=== PATIENT | male | born 1980 | race Caucasian/White ===

== ENCOUNTER → 2023-10-31 13:18 | Outpatient (BNVA) | payer OTHER, SELFPAY | PROVIDERS: Visit Provider Physician Assistant ==

== ENCOUNTER 2023-12-05 14:57 | Outpatient (AMB) | payer OTHER, SELFPAY ==
--- NOTE | 2023-12-05 14:59 | A.OFFVIS_ITS ---
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 He heard about our program from a co-worker. His goal is to lose weight and achieve a healthy lifestyle. He reports first being concerned about his weight since childhood, highest weight to date was 370. Current weight is 282.8 pounds with a BMI of 39.4. He has tried multiple methods of weight loss including fad diets without permanent results. He lives with his and dogs. 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 He wakes at:?630 am, and goes to bed at?10 pm. Dinner is at 630 pm. Breakfast: skip or 2 eggs w bagel w cream cheese or butter alternative, or polish yogurt AM snack: skip Lunch: salad, deli meat, low fat low carb wrap PM snack: pretzels Dinner: prepared meals shipped to home. chicken, salad, restaurant food After dinner: banana or ice cream Other snacks: ice cream Liquids: 64 oz water, no soda no juice, 2-3 c coffee w cream (last cup by noon) Alcohol/marijuana/tobacco intake: 1-2 beers per week, no cannabis, no tobacco Exercise: none, has gym membership, PF or performance gym. GERD score: 0 TEJA score: 3 ESS score: 3 QOL score: 58 [facility] Surgical History Hx of oral surgery Hx of foot surgery Hx of eye surgery Family History Mother No problems noted. Father Diabetes Heart problem Sister No problems noted. Social History Alcohol intake: current Alcohol intake frequency: a few times a week Patient Tobacco Use Status: Never used Tobacco Review of Systems Const All systems reviewed & are unremarkable except as noted in HPI and below Physical Exam Vital Signs: Last Vital Signs Temp 97.8 F 12/05/23 15:09 Pulse 92 12/05/23 15:09 BP 139/74 12/05/23 15:09 Pulse Ox 99 12/05/23 15:09 Oxygen Delivery Method Room Air 12/05/23 15:09 BMI result Body Mass Index 39.4 Const General: cooperative, healthy appearing and no acute distress Orientation/consciousness: patient oriented x3 HEENT Head: Yes normal to inspection Ears: hearing grossly normal bilaterally General nose exam: Normal external nose present Face and sinus: Yes normal facial exam Eyes General: appearance normal, both eyes and all related structures Resp Effort & Inspection: normal respiratory effort Auscultation: clear to auscultation bilaterally Cardio Rate: regular rate Rhythm: regular rhythm Heart sounds: S1 normal heart sound present and S2 normal heart sound present GI Inspection: Yes normal to inspection, No distended and Yes obesity Palpation (GI): Soft to palpation, nontender and no guarding Auscultation: normal bowel sounds Skin General skin exam: no rashes or lesions noted Neuro General: patient oriented x3 Extrem General: No edema Psych Appearance: grossly normal Mental Status: mental status grossly normal Speech and movement: Normal speech and movement present Affect: normal affect Attitude: cooperative Assessment & Plan Assessment & Plan (1) Obesity (BMI 30-39.9): Code(s): E66.9 - Obesity, unspecified Plan: This is a?43 yo male who will start our MWL program.? ? Adequate sleep of 7-8 hours per night discussed, awakening at 06:30 and going to bed at 10 pm ? Purchase body composition analyzer scale (Renpho recommended) and check weight weekly. The best time to do this is first thing in the morning after going to the bathroom. 1. Nutritional counseling: Be sure to careful read the number of scoops per shake Start with 2 Orgain Protein shakes (TabTale, MicroEnsure), (2 scoops in 12 oz unsweetened almond milk) First shake at 730am-930am Second shake at 1130am-130pm 2 protein bars (Zone perfect, fulfil or aloha) First bar at 330pm-530pm. Dinner at 630 pm (9 forks of protein and 9 forks of salad/vegetables). Meal to include lean meat (beef, fish, pork, turkey, chicken), cooked vegetables or a salad with olive oil and/or fruits (berries, pears, apples, kiwi). Avoid salt, breads, potatoes, rice, pasta, desserts. Second bar at 8pm-10pm. Try to drink 64 oz of water daily and avoid soda and juices. ?2. Each shake would be drunk slowly, like coffee in a period of 2 hours. ?3. Cut each bar in 4 pieces and eat each piece in 30 min ?to make each bar last 2 hours. ?4. I emphasized the importance of measuring accurately the food portion and measure it carefully when serving the food on the plate ?5. The meal portions include 9 full-size forks of meat and 9 full-size forks of salad. You always eat the meat portion but you can replace up to half of the forks of salad/vegetables with rice, potatoes or pasta, or a fruit ?if you like. The less you do it the better weight loss will be. ?6. One full-size fork is what can be scooped on the fork without falling aside and not what can be bit with the fork. Use regular forks like those you find in a typical restaurant. ?7.? Please send me weight measurements as soon as possible and then once a week. Always include your diet and exercise plan. Alternatively come weekly at the office for weight checks and send me the measurements. ?8. Exercise counseling: Begin by watching a stretching for beginners video. Start slowly and begin to stretch your muscles. You should do this before and after each exercise session to prevent injury. Please return to [facility] gym or performance gym near your home. Ask the web development manager or one of the trainers how to use the machines if you are unfamiliar with them. Start elliptical with a resistance of 2. Increase resistance by 1 every 3 min to your most comfortable resistance with a max resistance of 8. Reduce the resistance by 1 every 3 minutes back down to 2 and repeat cycles for 300 calories. Alternatively, start treadmill with a speed of 3.0 and incline of 0, increasing incline by 1 every 3 minutes to the highest comfortable level (max 6 for now) then decrease in the same fashion. Repeat process to a goal of 300 calories. Goal of 2000 calories burned or more weekly. You may also consider use of the stationary bike. The easiest would be to chose the fat-burn or interval training program on the machine and do this until you reach the 300 calorie goal. Alternatively, you can manually adjust the resistance in a similar fashion as mentioned above, (resistance of 2-8 with a goal speed of 12 mph). Tracking calories is essential. 9. Alternatively start walking outside daily, tracking calories with a goal of 300 calories per day, daily. You can download the devyn Twoodo which can track your time, distance and calories while walking outside. You press start in the devyn when you start and then stop when you are finished. 10.? It is important to communicate by text weekly 11. Discussed and answered all questions regarding?obtained consent to participate in the [place] [facility]?Registry. 12. Please follow the diet plan exactly, without any change. If you do not like something about the plan or you feel hungry, you need to communicate with me so I can help you revise the plan. You should not change the plan yourself. Text me at [phone] 13. Goal is to lose at least 12 pounds in the first month Patient is morbidly obese and is not considered stable at this time.?I spent a total of 70 minutes reviewing/updating records, examining the patient and counseling the patient on weight management as detailed above. Coding Level of Care Code New Pt Level 5 (97059) Diagnoses Obesity (BMI 30-39.9) E66.9 Time Spent (min) 70
[2023-12-05 15:09] VITALS: BP 139/74; PULSE 92; TEMP 36.6; O2SAT 99; BMI 39.4
== END 2023-12-05 16:22 | disposition home or self-care (01) ==
PROVIDERS: Visit Provider Physician Assistant Surgical
DX: E66.9 Obesity, unspecified (principal); Z68.39 Body mass index [BMI] 39.0-39.9, adult
CPT/HCPCS: 99205

== ENCOUNTER → 2023-12-05 14:57 | Outpatient (BNVA) | payer OTHER, SELFPAY | PROVIDERS: Visit Provider Physician Assistant Surgical ==

== ENCOUNTER 2024-01-15 08:32 | Outpatient (AMB) | payer OTHER, SELFPAY ==
[2024-01-15 08:16] VITALS: BMI 38.0
--- NOTE | 2024-01-15 08:16 | A.OFFVIS_ITS ---
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 He is being seen in the metabolic weight loss program. Was initially seen on 12/05/2023. Weight at that time was 282.8 lb with a BMI of 39.4. Weight today is 272.5 lb with a BMI of 38. Overall weight loss is 10.3 lb or 3.6% total body weight loss. He recently returned from a vacation [place] [place] [facility]. Aside form the vacation, he is doing well. He is following the meal plan except having more forks of veggies. Sometimes not having the second bar. Meal plan: 2 Orgain Protein shakes (WeSpeke, TruLeaf), (2 scoops in 12 oz unsweetened almond milk) First shake at 730am-930am Second shake at 1130am-130pm 2 protein bars (Zone perfect, fulfil or aloha) First bar at 330pm-530pm. Dinner at 630 pm (9 forks of protein and 9 forks of salad/vegetables). Second bar at 8pm-10pm. Drinking 90-120 oz water Exercise plan: gym, elliptical, 2-3 x per week, 500-600 walking outside 2 mi daily 20-30 min on pelaton bike, 2-3 x per week PFSH Surgical History Hx of oral surgery Hx of foot surgery Hx of eye surgery Family History Mother No problems noted. Father Diabetes Heart problem Sister No problems noted. Social History Alcohol intake: current Alcohol intake frequency: a few times a week Patient Tobacco Use Status: Never used Tobacco Telehealth Telehealth Telehealth Platform: Telephone Location of provider rendering services: practice address Location of patient: address on file Patient Identification confirmed using: Name, : Yes Telehealth method: voice only Patient verbally consented to treatment: Yes Patient verbally consented to billing insurance company: Yes Patient informed of any privacy concerns related to visit: Yes Minutes spent on Phone/Video with Pt.: 15 Assessment & Plan Assessment & Plan (1) Obesity (BMI 30-39.9): Code(s): E66.9 - Obesity, unspecified Category: Medical Plan: Overall making good progress. Now that he is returned from his vacation in [place] [place], he will continue to exercise more regularly. Discussed using Peloton bike after the walk with the dog. Additionally, we will make some adjustments to his meal plan: 2 Orgain Protein shakes (WeSpeke, TruLeaf), (2 scoops in 12 oz unsweetened almond milk) First shake at 730am-930am Second shake at 1130am-130pm 2 protein bars (Zone perfect, fulfil or aloha) First bar at 330pm-530pm. Dinner at 630 pm (9 forks of protein and 9 forks of salad/vegetables). If wanted, 1 cup fresh berries or an apple, pear, kiwi or orange Continue to text weekly with weight and with any questions or concerns
== END 2024-01-15 09:10 | disposition home or self-care (01) ==
LOC: HO.HBS 08:32
PROVIDERS: Visit Provider Physician Assistant Surgical
DX: E66.9 Obesity, unspecified (principal); Z68.38 Body mass index [BMI] 38.0-38.9, adult
CPT/HCPCS: 99442

== ENCOUNTER → 2024-01-15 08:32 | Outpatient (BNVA) | payer OTHER, SELFPAY | PROVIDERS: Visit Provider Physician Assistant Surgical ==

== ENCOUNTER 2024-03-04 08:29 | Outpatient (AMB) | payer OTHER, SELFPAY ==
--- NOTE | 2024-03-04 08:30 | A.OFFVIS_ITS ---
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 He is being seen in the metabolic weight loss program. Was initially seen on 12/05/2023. Weight at that time was 282.8 lb with a BMI of 39.4. Weight today is 257 lb with a BMI of 35.8. Overall weight loss is 25.8 lb or 9.1% total body weight loss. He recently returned from a vacation in [facility]. Aside form the vacation, he is doing well. He is following the meal plan except having some hunger at night. Problems with constipation, moving his bowels every 3-4 days. Used MiraLax in the past as well as Colace. Senna caused bloating. Meal plan: 2 Orgain Protein shakes ([employer], [employer]), (2 scoops in 12 oz unsweetened almond milk) First shake at 730am-930am Second shake at 1130am-130pm 1 protein bars (aloha) First bar at 330pm-530pm. Dinner at 630 pm (9 forks of protein and 9 forks of salad/vegetables). If wanted, 1 cup fresh berries or an apple, pear, kiwi or orange Drinking 90-120 oz water Exercise plan: gym, elliptical, 2-3 x per week, 500-600 walking outside 2 mi daily 20-30 min on [employer] bike, 2-3 x per week [facility] Surgical History Hx of oral surgery Hx of foot surgery Hx of eye surgery Family History Mother No problems noted. Father Diabetes Heart problem Sister No problems noted. Social History Alcohol intake: current Alcohol intake frequency: a few times a week Patient Tobacco Use Status: Never used Tobacco Physical Exam Const General: healthy appearing and no acute distress Resp Effort & Inspection: normal respiratory effort Auscultation: clear to auscultation bilaterally Cardio Rate: regular rate Rhythm: regular rhythm GI Auscultation: normal bowel sounds Extrem General: Yes normal to inspection Assessment & Plan Assessment & Plan (1) Obesity (BMI 30-39.9): Code(s): E66.9 - Obesity, unspecified Category: Medical Plan: Making excellent progress. Encouraged to return to the gym consistently. We will continue with meal plan as above, adding half bar in the evening as needed. Plan for follow-up in the office in 1 month. Encouraged to text weekly with any questions or concerns. (2) IBS (irritable bowel syndrome): Code(s): K58.9 - Irritable bowel syndrome without diarrhea Category: Medical Plan: Add half cap of MiraLax to shake daily, flexing as needed to achieve normal in functional bowel movements
[2024-03-04 08:37] VITALS: BP 139/60; PULSE 85; TEMP 36.5; O2SAT 99; BMI 35.8
== END 2024-03-04 09:01 | disposition home or self-care (01) ==
PROVIDERS: Visit Provider Physician Assistant Surgical
DX: E66.9 Obesity, unspecified (principal); K58.9 Irritable bowel syndrome, unspecified
CPT/HCPCS: 99213

== ENCOUNTER → 2024-03-04 08:29 | Outpatient (BNVA) | payer OTHER, SELFPAY | PROVIDERS: Visit Provider Physician Assistant Surgical ==